=== PATIENT | female | born 1945 | race Caucasian/White ===

== ENCOUNTER 2018-11-10 08:24 | Emergency (ER) | payer MEDICARE ==
[~2018-11-10] VITALS: Ht 167.6 cm; Wt 63.5 kg
--- NOTE | 2018-11-10 10:20 | Diagnostic Imaging Report ---
CT BRAIN WO HISTORY: Fall COMPARISON: None. Technique: Noncontrast axial scans were obtained from skull base to the vertex. Coronal and sagittal reconstructions obtained from the axial data. One or more of the following dose reduction techniques were used: Automated exposure control, adjustment of the mA and/or kV according to patient size, and/or utilization of iterative reconstruction technique. DISCUSSION: Scalp/Skull: Unremarkable. Brain sulci: Prominent, especially along the mesial temporal lobes. Ventricles: Compensatory dilatation. Extra-axial spaces: No masses or fluid collections. Carotid siphon calcifications are present. Parenchyma: Severe bilateral deep white matter hypodensity is likely chronic microvascular ischemic change. Old symmetric lacunar insults are seen along the posterior limbs of both internal capsules. 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 Otherwise, no masses, hemorrhage, or large vascular territory acute infarct. Dural sinuses: No abnormal densities. Sellar/Suprasellar region: Intact. Skull base: Intact. Incidental findings: Incidental 1.1 cm nodular cystic lesion along the medial left orbital rim is nonspecific. IMPRESSION: 1. No acute intracranial abnormalities. 2. Severe supratentorial chronic microvascular ischemic change. 3. Old symmetric bilateral internal capsule posterior limb lacunar insults with associated midbrain atrophy 4. Generalized cerebral volume loss with slight predominance in the mesial temporal lobes. 5. Nonspecific 1.1 cm nodular cystic lesion along the medial left orbital rim can be correlated with ophthalmologic examination. Signed by: Dr. Yonny Yu M.D. on 11/10/2018 10:17 AM
[2018-11-10 11:01] VITALS: BP 129/58
== END 2018-11-10 12:30 | disposition home or self-care (01) ==
LOC: ER 08:24
DX: S01.112A Laceration without foreign body of left eyelid and periocular area, initial encounter (principal); W01.0XXA Fall on same level from slipping, tripping and stumbling without subsequent striking against object, initial encounter; Y93.01 Activity, walking, marching and hiking; Y92.128 Other place in nursing home as the place of occurrence of the external cause; F03.90 Unspecified dementia, unspecified severity, without behavioral disturbance, psychotic disturbance, mood disturbance, and anxiety; I10 Essential (primary) hypertension
CPT/HCPCS: 70450; 99283